=== PATIENT | female | born 1960 | race Caucasian/White ===

== ENCOUNTER → 2023-12-16 16:24 | Outpatient (REF) | payer OTHER, SELFPAY | LOC: WDC 16:24 | PROVIDERS: ATTENDING PHYSICIAN Obstetrics & Gynecology; FAMILY PHYSICIAN Family Medicine | DX: Z12.31 Encounter for screening mammogram for malignant neoplasm of breast (principal) | CPT/HCPCS: 77063; 77067 ==

== ENCOUNTER → 2024-05-06 12:33 | Outpatient (REF) | payer OTHER, SELFPAY | LOC: RAD 12:33 | PROVIDERS: ATTENDING PHYSICIAN Family Medicine | DX: Z87.891 Personal history of nicotine dependence (principal) | CPT/HCPCS: 71271 ==

== ENCOUNTER → 2024-05-13 12:54 | Outpatient (REF) | payer OTHER, SELFPAY | LOC: RAD 12:54 | PROVIDERS: ATTENDING PHYSICIAN Family Medicine | DX: Z13.820 Encounter for screening for osteoporosis (principal); N95.1 Menopausal and female climacteric states | CPT/HCPCS: 77080 ==

== ENCOUNTER 2025-02-02 06:20 | Day surgery (SDC) | payer OTHER, SELFPAY | END 2025-02-02 09:36 | disposition home or self-care (01) | LOC: GI 06:20 | PROVIDERS: ATTENDING PHYSICIAN Internal Medicine; FAMILY PHYSICIAN Family Medicine | DX: K52.9 Noninfective gastroenteritis and colitis, unspecified (principal); K57.30 Diverticulosis of large intestine without perforation or abscess without bleeding; D12.2 Benign neoplasm of ascending colon | CPT/HCPCS: 45385; 45380; 88305 ==

== ENCOUNTER → 2025-04-26 11:47 | Outpatient (REF) | payer SELFPAY | LOC: RAD 11:47 | PROVIDERS: ATTENDING PHYSICIAN Family Medicine | DX: I70.0 Atherosclerosis of aorta (principal) | CPT/HCPCS: 75571 ==